=== PATIENT | male | born 1935 | race Caucasian/White ===

== ENCOUNTER 2016-08-17 11:52 | Emergency (ER) | payer MEDICARE ==
[~2016-08-17] VITALS: Ht 188 cm; Wt 113.4 kg
[~2016-08-17 11:52] MED LIST: ASP325T; ASPI-983 PO; ATOR80TA76 PO; METO-351 PO; OMEG500C3 PO; PRILOSEC; TICA90TA PO
--- NOTE | 2016-08-17 12:25 | ED Lower Extremity ---
General Chief Complaint: Lower Extremity Stated Complaint: PT THINKS POSS BLOOD CLOTS IN LT LEG Source: patient Exam Limitations: no limitations History of Present Illness Time seen by provider: 12:22 Initial Comments The patient is a 81-year-old white male who presents with complaints of pain and swelling in the left lower leg. He states that this has come on over the past several days and he fears that he has a blood clot. He stated that he has previously had one in the right leg. He also has had 3 coronary stents placed. At this time he takes only one baby aspirin daily. 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 Onset: last week Pain/Injury Location: left leg Method of Injury: unknown Allergies and Home Medications Allergies Coded Allergies: No Known Drug Allergies (Verified , 09/27/06) Home Medications Aspirin 81 Mg Tablet.dr, 81 MG PO DAILY, #100 Ref 4 Prescribed by: AUDREY ARENAS on 01/06/15 0835 Atorvastatin Calcium 80 Mg Tablet, 80 MG PO HS, #30 Ref 6 Prescribed by: AUDREY ARENAS on 01/06/15 0835 Metoprolol Succinate 25 Mg Tab.er.24h, 25 MG PO DAILY, #30 Ref 4 Prescribed by: AUDREY ARENAS on 01/06/15 0835 [place]-3 Fatty Acids 500 Mg Capsule, 1,000 MG PO BID, #100 Ref 4 Prescribed by: AUDREY ARENAS on 01/06/15 0835 Ticagrelor 90 Mg Tablet, 90 MG PO BID, #60 Ref 6 Prescribed by: AUDREY ARENAS on 01/06/15 0835 [Prilosec] , (Reported) Constitutional: see HPI EENTM: no symptoms reported Respiratory: dyspnea on exertion Cardiovascular: see HPI, Hx of Intervention, vascular heart diseas Gastrointestinal: no symptoms reported Genitourinary: no symptoms reported Musculoskeletal: no symptoms reported Skin: no symptoms reported Psychiatric/Neurological: No Symptoms Reported Past Lbvheiz-Xygewo-Snistb Hx Patient Social History Alcohol Use: Denies Use Recreational Drug Use: No Smoking Status: Never a Smoker Recent Foreign Travel: No Contact w/Someone Who Travel: No Recent Hopitalizations: No (AT THIS POINT THE PT REFUSED TO ANSWER ANY MORE QUESTIONS) Surgeries HX Surgeries: No Surgeries: Coronary Stent Respiratory Hx Respiratory Disorders: No Cardiovascular Hx Cardiac Disorders: No Cardiac Disorders: Heart Attack Neurological Hx Neurological Disorders: No Reproductive System Hx Reproductive Disorders: No Genitourinary Hx Genitourinary Disorders: No Gastrointestinal Hx Gastrointestinal Disorders: No Musculoskeletal Hx Musculoskeletal Disorders: No Endocrine Hx Endocrine Disorders: No HEENT HX ENT Disorders: No Psychosocial Hx Psychiatric Problems: No Integumentary HX Skin/Integumentary Disorder: No Blood Transfusions Hx Blood Disorders: No Physical Exam Vital Signs Vital Sign - Last 12Hours 08/17/16 12:05 Temp 97.4 Pulse 105 Resp 20 B/P (MAP) 153/103 Pulse Ox 94 Capillary Refill : General Appearance: WD/WN, no apparent distress HEENT: normal ENT inspection Neck: full range of motion Cardiovascular: normal peripheral pulses, regular rate, rhythm, no edema, no gallop, no JVD, no murmur Respiratory: chest non-tender, lungs clear, normal breath sounds, no respiratory distress, no accessory muscle use Gastrointestinal: normal bowel sounds, non tender, soft, no organomegaly, no pulsatile mass Back: normal inspection 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 There is a medial red streak over the distal and middle thirds of the leg. There is a palpable somewhat tender cord consistent with clot in the superficial vein. Progress/Results/Core Measures Results/Orders My Orders Orders - ZITA GROSS MD Venous Lower Ext Lt (08/17/16 12:40) Vital Signs/I&O Vital Sign - Last 12Hours 08/17/16 12:05 Temp 97.4 Pulse 105 Resp 20 B/P (MAP) 153/103 Pulse Ox 94 Departure Communication Progress Notes 1340 radiology confirms the impression of superficial venous thrombosis. 1354 I discussed with the patient and his family options and treatment which include NSAIDs and thermal measures, subcutaneous Lovenox, or Eliquis. In addition he needs a local physician to follow up and this was emphasized. He has elected to proceed with Eliquis. Impression Impression: Primary Impression: superficial venous thrombosis Disposition: HOME, SELF-CARE Condition: Stable/Unchanged Departure-Patient Inst. Decision time for Depature: 13:53 Referrals: NO,LOCAL PHYSICIAN (PCP) Primary Care Physician Patient Instructions: Deep Vein Thrombosis (Blood Clots in the Legs) (DC) Add. Discharge Instructions: All discharge instructions reviewed with patient and/or family. Voiced understanding. Take ibuprofen 400 mg 3 times daily Elevate the leg as much as possible Use hot or cold compresses several times a day. Your choice will be the one that makes you feel more comfortable. Take the Eliquis twice daily as directed You need to be seen by a local physician in 7-10 days. It is likely that a repeat sonogram will be performed. Scripts Apixaban (Eliquis) 5 Mg Tablet 5 MG PO BID, #60 TAB Prov: ZITA GORSS MD 08/17/16 ZITA GROSS MD Aug 17, 2016 12:25
--- NOTE | 2016-08-17 13:38 | Diagnostic Imaging Report ---
EXAMINATION: Left lower extremity duplex venous ultrasound. TECHNIQUE: DVT protocol. Multiple sonographic images with color Doppler and waveform interrogation were performed of the left lower extremity veins with compression and augmentation maneuvers. INDICATION: Left leg pain. FINDINGS: The left lower extremity veins from the groin to below the knee veins were examined with normal color-flow, compressibility and waveform demonstrated. The great saphenous vein is however thrombosed in the medial aspect of the calf extending around at 16 cm length of this vein. Proximally in the leg, the great saphenous vein is patent. IMPRESSION: 1. Superficial venous thrombosis involving the great saphenous vein in the mid calf. 2. No evidence of DVT in the left lower extremity. Dictated by: Dictated on workstation # [id number]
[2016-08-17] MEDS ORDERED: APIX5TAB PO (13:59)
[2016-08-17 14:10] VITALS: BP 142/88
== END 2016-08-17 14:10 | disposition home or self-care (01) ==
LOC: EDUNIT# 11:52 → ER 11:56
DX: I82.812 Embolism and thrombosis of superficial veins of left lower extremity (principal); I25.2 Old myocardial infarction; Z95.5 Presence of coronary angioplasty implant and graft; Z79.82 Long term (current) use of aspirin
CPT/HCPCS: 99283

== ENCOUNTER → 2017-05-27 | Outpatient (CLI) | payer MEDICARE ==
[~2017-05-27] MED LIST changes: +APIX5TAB PO
--- NOTE | 2017-05-27 17:50 | Diagnostic Imaging Report ---
PROCEDURE: US right lower extremity venous. TECHNIQUE: Multiple real-time grayscale images were obtained over the right lower extremity in various projections. Additional duplex Doppler and color Doppler images were also obtained. INDICATION: Right leg pain and edema. FINDINGS: The right common femoral, femoral, and popliteal veins demonstrate normal response to compression, augmentation, and Valsalva. There is some superficial thrombophlebitis in a varicose vein in the medial calf. There are no abnormal fluid collections or masses. IMPRESSION: No evidence of deep venous thrombosis in the right lower extremity. Superficial thrombophlebitis within a varicose vein along the medial calf. Dictated by: Dictated on workstation # [id number]
== END ==
LOC: RAD 17:01
PROVIDERS: ATTEND Family Medicine
DX: I80.01 Phlebitis and thrombophlebitis of superficial vessels of right lower extremity (principal); I83.891 Varicose veins of right lower extremity with other complications; Z86.718 Personal history of other venous thrombosis and embolism

== ENCOUNTER 2018-04-29 12:05 | Emergency (ER) | payer MEDICARE ==
[~2018-04-29] VITALS: Ht 188 cm; Wt 113.4 kg
--- NOTE | 2018-04-29 12:52 | ED Lower Extremity ---
General Chief Complaint: Lower Extremity Stated Complaint: EDEMA IN LEGS Source: patient Exam Limitations: no limitations History of Present Illness Date Seen by Provider: Apr 29, 2018 Time Seen by Provider: 12:51 Initial Comments To ER by daughter with reports of progressive bilateral lower extremity swelling and draining wounds for the past 3 weeks. He has seen his primary care provider for this but states that nothing has been done for it. Onset: just prior to arrival, other Severity: moderate Pain/Injury Location: bilateral leg Method of Injury: fell Modifying Factors: Worse With Movement Allergies and Home Medications Allergies Coded Allergies: No Known Drug Allergies (Verified , 09/27/06) Home Medications Amoxicillin/Potassium Clav 1 Each Tablet, 1 EACH PO BID Prescribed by: SORAYA MURRAY on 04/29/18 1326 Apixaban 5 Mg Tablet, 5 MG PO BID Prescribed by: ZITA GROSS on 08/17/16 1359 Aspirin 81 Mg Tablet.dr, 81 MG PO DAILY Prescribed by: AUDREY ARENAS on 01/06/15 0835 Atorvastatin Calcium 80 Mg Tablet, 80 MG PO HS Prescribed by: AUDREY ARENAS on 01/06/15 0835 Metoprolol Succinate 25 Mg Tab.er.24h, 25 MG PO DAILY Prescribed by: AUDREY ARENAS on 01/06/15 0835 [place]-3 Fatty Acids 500 Mg Capsule, 1,000 MG PO BID Prescribed by: AUDREY ARENAS on 01/06/15 0835 Ticagrelor 90 Mg Tablet, 90 MG PO BID Prescribed by: AUDREY ARENAS on 01/06/15 0835 Patient Home Medication List Home Medication List Reviewed: Yes Review of Systems Constitutional: see HPI EENTM: see HPI Respiratory: no symptoms reported; No cough; dyspnea on exertion (chronic and unchanged) Cardiovascular: no symptoms reported; No chest pain Genitourinary: no symptoms reported Musculoskeletal: no symptoms reported Skin: no symptoms reported Psychiatric/Neurological: No Symptoms Reported Past Wsycyup-Qddgwx-Adymmf Hx Patient Social History Recent Foreign Travel: No Contact w/Someone Who Travel: No Recent Hopitalizations: No (AT THIS POINT THE PT REFUSED TO ANSWER ANY MORE QUESTIONS) Past Medical History Surgeries: Yes Coronary Stent Respiratory: No Cardiac: Yes Heart Attack Neurological: No Reproductive Disorders: No Gastrointestinal: No Musculoskeletal: No Endocrine: No Psychosocial: No Integumentary: No Blood Disorders: No Physical Exam Vital Signs Vital Signs - First Documented 04/29/18 12:15 Temp 98.0 Pulse 82 Resp 22 B/P (MAP) 134/80 (98) Pulse Ox 95 O2 Delivery Room Air Capillary Refill : Height, Weight, BMI Height: 6'2.00" Weight: 250lbs. 0.0oz. 113.528001dv; BMI Method:Stated General Appearance: WD/WN, no apparent distress HEENT: PERRL/EOMI, normal ENT inspection Neck: non-tender, full range of motion Respiratory: no respiratory distress, no accessory muscle use Hips: bilateral hip non-tender, bilateral hip normal inspection, bilateral hip normal range of motion Legs: bilateral leg other (3+ pitting edema bilateral lower extremity, multiple draining wounds, draining serous fluid on each side.) Knees: bilateral knee non-tender, bilateral knee normal inspection, bilateral knee normal range of motion Ankles: bilateral ankle non-tender, bilateral ankle normal range of motion, bilateral ankle swelling Feet: bilateral foot non-tender, bilateral foot normal range of motion, bilateral foot swelling Neurologic/Psychiatric: alert, normal mood/affect, oriented x 3 Skin: normal color, warm/dry Progress/Results/Core Measures Results/Orders My Orders Orders - SORAYA MURRAY APRN Cbc With Automated Diff (04/29/18 12:28) Comprehensive Metabolic Panel (04/29/18 12:28) BNP (04/29/18 12:28) Chest Pa/Lat (2 View) (04/29/18 12:38) Wound Culture (04/29/18 12:38) Vital Signs/I&O 04/29/18 12:15 Temp 98.0 Pulse 82 Resp 22 B/P (MAP) 134/80 (98) Pulse Ox 95 O2 Delivery Room Air Diagnostic Imaging Diagonstic Imaging: Xray Plain Films/CT/US/NM/MRI: chest Comments NAME: [facility] REC#: [id number] PT STATUS: REG ER : 1935 PHYSICIAN: SORAYA MURRAY APRN ADMIT DATE: 04/29/18/ER Draft Date of Exam:04/29/18 CHEST PA/LAT (2 VIEW) INDICATION: Edema. COMPARISON: 01/05/2015. FINDINGS: There is cardiomegaly. There is venous congestion. There are patchy bibasilar infiltrates. There is no pleural effusion or pneumothorax. The mediastinum is unremarkable. IMPRESSION: 1. Patchy bibasilar infiltrates. 2. Cardiomegaly. 3. Central pulmonary venous congestion. Dictated on workstation # [id number] Dict: 04/29/18 1308 Trans: 04/29/[address] [facility] [id number] Interpreted by: KATHI SANCHEZ MD Electronically signed by: Departure Impression Primary Impression: Pedal edema Additional Impression: Open leg wound Qualified Codes: S81.801A - Unspecified open wound, right lower leg, initial encounter Disposition: HOME, SELF-CARE Condition: Stable Departure-Patient Inst. Decision time for Depature: 13:24 Referrals: MONIQUE GARCIA MD, RACHEL L MD (PCP/Family) Primary Care Physician Patient Instructions: Dependent Edema (DC) Add. Discharge Instructions: 1. Elevate your legs as much as possible 2. Take antibiotics as directed 3. Follow-up with your doctor later next week for recheck. You have an appointment with Dr. Morris from wound care on Wednesday05/03/18 at 12:45 PM. Scripts Amoxicillin/Potassium Clav (Augmentin 875-125 Tablet) 1 Each Tablet 1 EACH PO BID, #14 TAB Prov: SORAYA MURRAY APRN 04/29/18 SORAYA MURRAY APRN Apr 29, 2018 12:52
--- NOTE | 2018-04-29 13:12 | Diagnostic Imaging Report ---
INDICATION: Edema. COMPARISON: 01/05/2015. FINDINGS: There is cardiomegaly. There is venous congestion. There are patchy bibasilar infiltrates. There is no pleural effusion or pneumothorax. The mediastinum is unremarkable. IMPRESSION: 1. Patchy bibasilar infiltrates. 2. Cardiomegaly. 3. Central pulmonary venous congestion. Dictated by: Dictated on workstation # [id number]
[2018-04-29] MEDS ORDERED: AMOX-358 PO (13:26)
[2018-04-29 13:48] LABS: BASOPHILS % (AUTO) 0 % (0-10); EOSINOPHILS # (AUTO) 0.1 10^3/uL (0.0-0.3); EOSINOPHILS % (AUTO) 2 % (0-10); HEMATOCRIT 31 % (40-54); HEMOGLOBIN 9.3 G/DL (13.3-17.7); LYMPHOCYTES # (AUTO) 1.3 X 10^3 (1.0-4.0); LYMPHOCYTES % (AUTO) 15 % (12-44); MEAN CORPUSCULAR HEMOGLOBIN 31 PG (25-34); MEAN CORPUSCULAR HGB CONC 30 G/DL (32-36); MEAN CORPUSCULAR VOLUME 103 FL (80-99); MEAN PLATELET VOLUME 8.4 FL (7.4-10.4); MONOCYTES # (AUTO) 0.7 X 10^3 (0.0-1.0); MONOCYTES % (AUTO) 8 % (0-12); NEUTROPHILS # (AUTO) 6.6 X 10^3 (1.8-7.8); NEUTROPHILS % (AUTO) 75 % (42-75); PLATELET COUNT 236 10^3/uL (130-400); RED CELL DISTRIBUTION WIDTH 16.4 % (10.0-14.5); WHITE BLOOD COUNT 8.9 10^3/uL (4.3-11.0)
[2018-04-29 14:15] LABS: ALBUMIN 3.8 GM/DL (3.2-4.5); BILIRUBIN,TOTAL 0.6 MG/DL (0.1-1.0); CREATININE SERUM 1.68 MG/DL (0.60-1.30); POTASSIUM 4.4 MMOL/L (3.6-5.0); TOTAL PROTEIN 6.7 GM/DL (6.4-8.2)
[2018-04-29 14:22] VITALS: BP 134/80
--- OUTSIDE RECORDS SUMMARY | 2018-05-01 09:18 | XMS REPORT | Continuity of Care Document ---
Author Author [facility] Organization [facility] Address Unknown Phone Unavailable Allergies Active Description Code Type Severity Reaction Onset Reported/Identified Relationship to Patient Clinical Status Yes NO KNOWN DRUG ALLERGIES UNKNOWN NO KNOWN DRUG ALLERG Yes No Known Drug Allergies [id number] Drug Allergy Unknown N/A 09/27/2006 Medications There is no data. 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 01/06/2015 AUDREY ARENAS MD Ot I25.10 ATHSCL HEART DISEASE OF [place] CORONARY 01/06/2015 AUDREY ARENAS MD Ot I25.5 ISCHEMIC CARDIOMYOPATHY 01/06/2015 AUDREY ARENAS MD Ot I50.21 ACUTE SYSTOLIC (CONGESTIVE) HEART FAILUR 01/06/2015 AUDREY ARENAS MD Ot I95.9 HYPOTENSION, UNSPECIFIED 02/11/2015 ROLANDO NAVARRO Ot E78.2 02/11/2015 ROLANDO NAVARRO Ot I10 02/11/2015 ROLANDO NAVARRO Ot I25.10 02/11/2015 ROLANDO NAVARRO Ot I50.1 02/28/2015 ROLANDO NAVARRO Ot E78.2 02/28/2015 ROLANDO NAVARRO Ot I10 02/28/2015 ROLANDO NAVARRO Ot I25.10 02/28/2015 ROLANDO NAVARRO Ot I50.1 03/20/2015 ROLANDO NAVARRO Ot E78.2 03/20/2015 ROLANDO NAVARRO Ot I10 03/20/2015 ROLANDO NAVARRO Ot I25.10 03/20/2015 ROLANDO NAVARRO Ot I50.1 08/17/2016 ZITA GROSS MD, Ot I25.2 OLD MYOCARDIAL INFARCTION 08/17/2016 ZITA GROSS MD Ot I82.812 EMBOLISM AND THROMBOSIS OF [place]PERFIC VEIN 08/17/2016 ZITA GROSS MD Ot M79.605 PAIN IN LEFT LEG 08/17/2016 ZITA GROSS MD Ot Z79.82 SENIOR CARE (CURRENT) USE OF ASPIRIN 08/17/2016 ZITA GROSS MD Ot Z95.5 PRESENCE OF CORONARY ANGIOPLASTY IMPLANT 08/19/2016 ZITA GROSS MD Ot I25.2 OLD MYOCARDIAL INFARCTION 08/19/2016 ZITA GROSS MD Ot I82.812 EMBOLISM AND THROMBOSIS OF [place] 08/19/2016 ZITA GROSS MD Ot M79.605 PAIN IN LEFT LEG 08/19/2016 ZITA GROSS MD Ot Z79.82 SENIOR CARE (CURRENT) USE OF ASPIRIN 08/19/2016 ZITA GROSS MD Ot Z95.5 PRESENCE OF CORONARY ANGIOPLASTY IMPLANT 11/10/2016 Abhijeet Hardin 272.4 OTHER AND UNSPECIFIED HYPERLIPIDEMIA 11/10/2016 Abhijeet Hardin 401.9 UNSPECIFIED ESSENTIAL HYPERTENSION 11/10/2016 Abhijeet Hardin 453.42 ACUTE VENOUS EMBOLISM AND THROMBOSIS OF DEEP VESSELS OF DISTAL LOWER EXTREMITY 11/10/2016 Abhijeet Hardin E78.5 HYPERLIPIDEMIA, UNSPECIFIED 11/10/2016 Abhijeet Hardin I10 ESSENTIAL (PRIMARY) HYPERTENSION 11/10/2016 Abhijeet Hardin I82.4Z1 AC EMBLSM AND THOMBOS UNSP DEEP VEINS OF R DIST LOW EXTRM 11/10/2016 Abhijeet Hardin V12.51 PERSONAL HISTORY OF VENOUS THROMBOSIS AND EMBOLISM 11/10/2016 Abhijeet Hardin Z86.718 PERSONAL HISTORY OF OTHER VENOUS THROMBOSIS AND EMBOLISM 11/27/2016 FADI FROST 434.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, 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 11/27/2016 FROST, FADI W 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 11/27/2016 MARGOT FADI W 434.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, 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 11/27/2016 MARGOT FADI W 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 11/27/2016 FROSTCINDYFADI W 434.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, 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 11/27/2016 MARGOTCINDYFADI W 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 11/27/2016 FROSTCINDYFADI W 434.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, 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 11/27/2016 FADI FROST 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 05/27/2017 MARGOT ARIAS, FADI L Ot R60.0 LOCALIZED EDEMA 05/27/2017 MARGOT ARIAS, FADI L Ot R60.0 LOCALIZED EDEMA 05/28/2017 MARGOT ARIAS, FADI L Ot 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 05/28/2017 MARGOT ARIAS, FADI L Ot 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 05/28/2017 MARGOT ARIAS, FADI L Ot Z86.718 PERSONAL HISTORY OF OTHER VENOUS THROMBO 05/28/2017 FADI FROST W 401.0 MALIGNANT ESSENTIAL HYPERTENSION 05/28/2017 FADI FROST W 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 05/28/2017 FADI FROST A 782.3 EDEMA 05/28/2017 FADI FROST W I10 ESSENTIAL (PRIMARY) HYPERTENSION 05/28/2017 FADI FROST W I25.10 ATHEROSCLEROTIC HEART DISEASE OF [place] CORONARY ARTERY WITHOUT ANGINA PECTORIS 05/28/2017 FADI FROST A R60.0 LOCALIZED EDEMA 05/28/2017 FADI FROST W 401.0 MALIGNANT ESSENTIAL HYPERTENSION 05/28/2017 FADI FROST W 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 06/01/2017 FADI FROST MD Ot Z86.718 PERSONAL HISTORY OF OTHER VENOUS THROMBO 06/02/2017 ROLANDO NAVARRO Ot E78.2 MIXED HYPERLIPIDEMIA 06/02/2017 ROLANDO NAVARRO Ot I10 ESSENTIAL (PRIMARY) HYPERTENSION 06/02/2017 ROLANDO NAVARRO Ot I25.10 ATHSCL HEART DISEASE OF [place] CORONARY 06/02/2017 ROLANDO NAVARRO Ot I50.1 LEFT VENTRICULAR FAILURE 06/02/2017 FADI FROST MD Ot 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 06/02/2017 FADI FROST MD Ot 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 06/02/2017 FADI FROST MD Ot Z86.718 PERSONAL HISTORY OF OTHER VENOUS THROMBO 06/03/2017 FADI FROST 401.0 MALIGNANT ESSENTIAL HYPERTENSION 06/03/2017 FADI FROST 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 06/03/2017 FADI FROST 782.3 EDEMA 06/03/2017 FADI FROST I10 ESSENTIAL (PRIMARY) HYPERTENSION 06/03/2017 FADI FROST I25.10 ATHEROSCLEROTIC HEART DISEASE OF [place] CORONARY ARTERY WITHOUT ANGINA PECTORIS 06/03/2017 FADI FROST R60.0 LOCALIZED EDEMA 06/03/2017 FADI FROST V12.51 PERSONAL HISTORY OF VENOUS THROMBOSIS AND EMBOLISM 06/03/2017 FADI FROST Z86.718 PERSONAL HISTORY OF OTHER VENOUS THROMBOSIS AND EMBOLISM 06/03/2017 FADI FROST 272.4 06/03/2017 FADI FROST 401.0 MALIGNANT ESSENTIAL HYPERTENSION 06/03/2017 FROSTFADI ATKINSON W 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 06/03/2017 FROST, FADI W 428.0 06/03/2017 FROST, FADI A 782.3 EDEMA 06/03/2017 FROSTCINDYFADI W E78.5 HYPERLIPIDEMIA, UNSPECIFIED 06/03/2017 FROST, FADI W I10 ESSENTIAL (PRIMARY) HYPERTENSION 06/03/2017 FROST, FADI W I25.10 ATHEROSCLEROTIC HEART DISEASE OF [place] CORONARY ARTERY WITHOUT ANGINA PECTORIS 06/03/2017 FROST, FADI W I50.9 HEART FAILURE, UNSPECIFIED 06/03/2017 FROST, FADI A R60.0 LOCALIZED EDEMA 06/03/2017 FROST, FADI W V12.51 PERSONAL HISTORY OF VENOUS THROMBOSIS AND EMBOLISM 06/03/2017 FADI FROST W Z86.718 PERSONAL HISTORY OF OTHER VENOUS THROMBOSIS AND EMBOLISM 06/03/2017 FADI FROST W 272.4 06/03/2017 FADI FROST W 401.0 MALIGNANT ESSENTIAL HYPERTENSION 06/03/2017 FADI FROST W 414.01 06/03/2017 FROST, FADI W 428.0 06/03/2017 FROST FADI A 782.3 EDEMA 06/03/2017 FROST, FADI W E78.5 HYPERLIPIDEMIA, UNSPECIFIED 06/03/2017 FROST, FADI W I10 ESSENTIAL (PRIMARY) HYPERTENSION 06/03/2017 FROST, FADI W I25.10 ATHEROSCLEROTIC HEART DISEASE OF [place] CORONARY ARTERY WITHOUT ANGINA PECTORIS 06/03/2017 FADI FROST W I50.9 HEART FAILURE, UNSPECIFIED 06/03/2017 MARGOT FADI A R60.0 LOCALIZED EDEMA 06/03/2017 FROSTFADI ATKINSON W V12.51 PERSONAL HISTORY OF VENOUS THROMBOSIS AND EMBOLISM 06/03/2017 FADI FROST W Z86.718 PERSONAL HISTORY OF OTHER VENOUS THROMBOSIS AND EMBOLISM 11/30/2017 FADI FROST W 272.4 OTHER AND UNSPECIFIED HYPERLIPIDEMIA 11/30/2017 MARGOT FADI W 401.0 MALIGNANT ESSENTIAL HYPERTENSION 11/30/2017 CINDY FROSTHEL W 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 11/30/2017 FADI FROST W 782.3 EDEMA 11/30/2017 FADI FROST W 786.09 11/30/2017 FROSTCINDYFADI W E78.5 HYPERLIPIDEMIA, UNSPECIFIED 11/30/2017 FROSTCINDYFADI W I10 ESSENTIAL (PRIMARY) HYPERTENSION 11/30/2017 FROSTFADI ATKINSON W I25.10 ATHEROSCLEROTIC HEART DISEASE OF [place] CORONARY ARTERY WITHOUT ANGINA PECTORIS 11/30/2017 FROSTCINDYFADI W R06.00 DYSPNEA, UNSPECIFIED 11/30/2017 FROST FADI W R60.0 LOCALIZED EDEMA 11/30/2017 FROSTFADI ATKINSON W V70.0 ROUTINE GENERAL MEDICAL EXAMINATION AT A [facility] 11/30/2017 FROSTFADI ATKINSON Z00.01 ENCOUNTER FOR GENERAL ADULT MEDICAL EXAMINATION WITH ABNORMAL FINDINGS 11/30/2017 FROSTFADI ATKINSON W 272.4 OTHER AND UNSPECIFIED HYPERLIPIDEMIA 11/30/2017 FROSTFADI ATKINSON W 401.0 MALIGNANT ESSENTIAL HYPERTENSION 11/30/2017 FADI FROST W 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 11/30/2017 FADI FROST W 782.3 11/30/2017 FADI FROST W 786.05 11/30/2017 FROSTFADI ATKINSON W 786.09 11/30/2017 FROST, FADI W E78.5 HYPERLIPIDEMIA, UNSPECIFIED 11/30/2017 FROST, FADI W I10 ESSENTIAL (PRIMARY) HYPERTENSION 11/30/2017 FROSTFADI ATKINSON W I25.10 ATHEROSCLEROTIC HEART DISEASE OF [place] CORONARY ARTERY WITHOUT ANGINA PECTORIS 11/30/2017 FROST, FADI W R06.00 DYSPNEA, UNSPECIFIED 11/30/2017 FADI FROST W R06.02 SHORTNESS OF BREATH 11/30/2017 FADI FROST W R60.0 LOCALIZED EDEMA 11/30/2017 FROST, FADI W V70.0 11/30/2017 FROSTFADI ATKINSON W Z00.01 ENCOUNTER FOR GENERAL ADULT MEDICAL EXAMINATION WITH ABNORMAL FINDINGS 11/30/2017 FADI FROST W 272.4 OTHER AND UNSPECIFIED HYPERLIPIDEMIA 11/30/2017 FADI FROST W 401.0 MALIGNANT ESSENTIAL HYPERTENSION 11/30/2017 FADI FROST W 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 11/30/2017 FADI FROST W 782.3 11/30/2017 FAID FROST W 786.05 11/30/2017 FADI FROST W 786.09 11/30/2017 FADI FROST W E78.5 HYPERLIPIDEMIA, UNSPECIFIED 11/30/2017 FADI FROST W I10 ESSENTIAL (PRIMARY) HYPERTENSION 11/30/2017 FADI FROST W I25.10 ATHEROSCLEROTIC HEART DISEASE OF [place] CORONARY ARTERY WITHOUT ANGINA PECTORIS 11/30/2017 FADI FROST W R06.00 DYSPNEA, UNSPECIFIED 11/30/2017 FADI FROST W R06.02 SHORTNESS OF BREATH 11/30/2017 FADI FROST W R60.0 LOCALIZED EDEMA 11/30/2017 FADI FROST W V70.0 11/30/2017 FADI FROST W Z00.01 ENCOUNTER FOR GENERAL ADULT MEDICAL EXAMINATION WITH ABNORMAL FINDINGS 12/08/2017 FROST, FADI W 276.1 HYPOSMOLALITY AND/OR HYPONATREMIA 12/08/2017 FROST FADI W E87.1 HYPO-OSMOLALITY AND HYPONATREMIA 12/08/2017 FROST FADI W 276.1 HYPOSMOLALITY AND/OR HYPONATREMIA 12/08/2017 MARGOT FADI W E87.1 HYPO-OSMOLALITY AND HYPONATREMIA 12/08/2017 FADI FROST W 276.1 HYPOSMOLALITY AND/OR HYPONATREMIA 12/08/2017 FROST FADI W 414.00 CORONARY ATHEROSCLEROSIS OF UNSPECIFIED TYPE OF VESSEL, [place] OR [place] 12/08/2017 FADI FROST W 782.3 EDEMA 12/08/2017 CINDY FROSTHEL W 786.09 OTHER DYSPNEA AND RESPIRATORY ABNORMALITY 12/08/2017 FROST FADI W E87.1 HYPO-OSMOLALITY AND HYPONATREMIA 12/08/2017 MARGOT FADI W I25.10 ATHEROSCLEROTIC HEART DISEASE OF [place] CORONARY ARTERY WITHOUT ANGINA PECTORIS 12/08/2017 FADI FROST W R06.00 DYSPNEA, UNSPECIFIED 12/08/2017 FADI FROST W R60.0 LOCALIZED EDEMA 12/08/2017 FROST FADI W 276.1 HYPOSMOLALITY AND/OR HYPONATREMIA 12/08/2017 FROST FADI W 414.00 CORONARY ATHEROSCLEROSIS OF UNSPECIFIED TYPE OF VESSEL, [place] OR [place]RAFT 12/08/2017 FROST, FADI W 782.3 EDEMA 12/08/2017 FROST, FADI W 786.09 OTHER DYSPNEA AND RESPIRATORY ABNORMALITY 12/08/2017 CINDY FROSTTIESHA Montez E87.1 HYPO-OSMOLALITY AND HYPONATREMIA 12/08/2017 FROST FADI Montez I25.10 ATHEROSCLEROTIC HEART DISEASE OF [place] CORONARY ARTERY WITHOUT ANGINA PECTORIS 12/08/2017 CINDY FROSTTIESHA Montez R06.00 DYSPNEA, UNSPECIFIED 12/08/2017 CINDY FROSTTIESHA Montez R60.0 LOCALIZED EDEMA Procedures Code Description Performed By Performed On [id number] DILATION OF 1 COR ART WITH DRUG-ELUT INT 01/05/2015 [id number] MEASURE OF CARDIAC SAMPL PRESSURE, L H 01/05/2015 [id number] FLUOROSCOPY OF MULT COR ART USING L OSM 01/05/2015 [id number] FLUOROSCOPY OF LEFT HEART USING LOW OSMO 01/05/2015 Results Test Result Range Protime - 08/25/16 14:15 INR 1.4 1.0-4.0 Protime 16.9 Sec 9.9-12.8 Protime - 08/26/16 13:33 INR 1.4 1.0-4.0 Protime 17.2 Sec 9.9-12.8 Protime - 08/27/16 08:26 INR 1.5 1.0-4.0 Protime 17.7 Sec 9.9-12.8 Protime - 08/28/16 08:28 INR 2.2 1.0-4.0 Protime 26.7 Sec 9.9-12.8 Protime - 08/31/16 08:48 INR 3.1 1.0-4.0 Protime 38.3 Sec 9.9-12.8 Protime - 09/02/16 08:48 INR 3.3 1.0-4.0 Protime 40.5 Sec 9.9-12.8 Protime - 09/09/16 08:32 INR 3.9 1.0-4.0 Protime 48.3 Sec 9.9-12.8 Protime - 09/16/16 08:43 INR 2.5 1.0-4.0 Protime 30.0 Sec 9.9-12.8 Protime - 09/28/16 09:04 INR 2.1 1.0-4.0 Protime 26.1 Sec 9.9-12.8 Comprehensive Metabolic Panel - 11/10/16 16:15 Albumin 4.0 g/dL 3.6-5.1 ALP 44 U/L 35-130 ALT 21 U/L 6-45 Anion Gap 15 6-14 AST 22 U/L 2-40 BUN 12 mg/dL 5-25 Calcium 9.4 mg/dL 8.3-10.4 Chloride 102 mmol/L 95-114 CO2 27 mEq/L 22-33 Creat 1.17 mg/dL 0.50-1.50 eGFR 60 mL/min/1.73m2 >59 Globulin 3.5 g/dL 2.3-3.5 Glucose 93 mg/dL 70-110 Osmo 287 280-295 Potassium 4.5 mmol/L 3.5-5.3 Sodium 139 mmol/L 134-148 TBil 0.6 mg/dL 0.2-1.2 TP 7.5 g/dL 6.0-8.3 Other Culture - 11/26/16 17:00 PRELIM CULTURE RESULTS Abundant Gram Negative - CARLOS A / ID to [id number] Gram Positive Mixed Misa MEDIA PLATED Setup at 14:38 on 11/27/2016 Sensi - 11/26/16 17:00 Ampicillin/Sulbactam <=8/4 Ampicillin <=2 Amoxicillin/K Clavulanate <=4/2 Ceftriaxone <=8 Clindamycin <=0.5 Cefoxitin Screen N/R Ciprofloxacin <=1 Daptomycin <=0.5 Erythromycin <=0.5 Nitrofurantoin <=32 Gentamicin <=4 Gentamicin Synergy Screen N/R Inducible Clindamycin N/R Levofloxacin <=1 Linezolid <=1 Moxifloxacin <=0.5 Oxacillin <=0.25 Penicillin 2 Rifampin <=1 Streptomycin Synergy N/R Synercid <=0.5 Trimethoprim/ Sulfamethoxazole <=0.5/9.5 Tetracycline <=4 Vancomycin 2 FINAL CULTURE RESULTS Staphylococcus epidermidis (Isolate 2) Sensi - 11/26/16 17:00 FINAL CULTURE RESULTS Providencia rettgeri (Isolate 1) Ampicillin/Sulbactam <=8/4 Ampicillin <=8 Amoxicillin/K Clavulanate 16/8 Ceftriaxone <=8 Ciprofloxacin <=1 Nitrofurantoin >64 Gentamicin <=4 Levofloxacin <=2 Trimethoprim/ Sulfamethoxazole <=2/38 Tetracycline >8 Amikacin <=16 Aztreonam <=8 Ceftazidime <=1 Ceftazidime/K Clavulanate <=0.25 Cephalothin >16 Cefotaxime <=2 Cefotaxime/K Clavulanate <=0.5 Cefoxitin <=8 Cefazolin >16 Cefepime <=8 Cefuroxime <=4 Ertapenem <=1 Imipenem <=4 Meropenem <=4 Piperacillin/Tazobactam <=16 Piperacillin <=16 Tigecycline <=2 Tobramycin <=4 Protein S-Antigen - 11/27/16 10:03 PROTEIN S, FREE 78 % 57-157 PROTEIN S, TOTAL 84 % 60-150 Antiphospholipid Antibody - 11/27/16 10:03 CARDIOLIPIN IGA NEGATIVE CARDIOLIPIN IGG NEGATIVE CARDIOLIPIN IGM NEGATIVE COMMENTS SEE BELOW. PHOSPHATIDYL GLYCEROL IGA NEGATIVE PHOSPHATIDYL GLYCEROL IGG NEGATIVE PHOSPHATIDYL GLYCEROL IGM NEGATIVE PHOSPHATIDYL INOSITOL IGA NEGATIVE PHOSPHATIDYL INOSITOL IGG NEGATIVE PHOSPHATIDYL INOSITOL IGM NEGATIVE PHOSPHATIDYL SERINE IGA NEGATIVE PHOSPHATIDYL SERINE IGG NEGATIVE PHOSPHATIDYL SERINE IGM NEGATIVE SPECIMEN STATUS SPECIMEN HAS BEEN RECEIVED AND THE RESULTS WILL BE FORWARDED TO YOU.brTHROUGH THE MAIL. INTERPRETATION NEGATIVE Protein S-Antigen - 11/27/16 10:03 Protein S, Free 78 % 57-157 Protein S, Total 84 % 60-150 Antithrombin Activity - 11/27/16 10:03 Antithrombin Activity 79 % 75-135 Protein C Antigen - 11/27/16 10:03 Protein C Antigen 56 % 60-150 Comprehensive Metabolic Panel - 05/28/17 11:47 Albumin 4.0 g/dL 3.6-5.1 ALP 54 U/L 35-130 ALT 17 U/L 6-45 Anion Gap 15 6-14 AST 18 U/L 2-40 BUN 11 mg/dL 5-25 Calcium 9.2 mg/dL 8.3-10.4 Chloride 100 mmol/L 95-114 CO2 27 mEq/L 22-33 Creat 1.25 mg/dL 0.50-1.50 eGFR 56 mL/min/1.73m2 >59 Globulin 2.9 g/dL 2.3-3.5 Glucose 106 mg/dL 70-110 Osmo 285 280-295 Potassium 4.2 mmol/L 3.5-5.3 Sodium 138 mmol/L 134-148 TBil 0.6 mg/dL 0.2-1.2 TP 6.9 g/dL 6.0-8.3 Protein C Antigen - 06/03/17 10:22 PROTEIN C ANTIGEN 63 % 60-150 Protein C Antigen - 06/03/17 10:22 Protein C Antigen 63 % 60-150 Factor V Leiden Mutation - 06/03/17 10:22 Factor V Leiden Comment CBC with Auto Diff - 08/26/17 14:21 Baso% 0.60 % 0.00-2.50 Eos 0.2 K/uL 0.0-0.7 Eos% 2.0 % 0.0-7.0 Hct 35.7 % 42.0-52.0 Hgb 12.2 g/dL 14.0-17.0 Lym 1.97 K/uL 0.60-3.40 Lym% 18.9 % 10.0-50.0 MCH 35.5 pg 27.0-31.2 MCHC 34.2 g/dL 32.0-36.0 MCV 103.8 fL 80.0-97.0 Love% 7.7 % 0.0-12.0 MPV 9.2 fL 7.4-10.0 Yaya% 70.8 % 37.0-80.0 Plt 217 K/uL 150-400 RBC 3.44 M/uL 4.20-5.40 RDW 13.2 % 11.6-14.8 WBC 10.44 K/uL 5.00-10.00 Yaya 7.40 K/uL 2.00-6.90 Love 0.8 K/uL 0.0-0.9 Baso 0.1 K/uL 0.0-0.2 BNP - 11/30/17 16:00 BNP 78.90 pg/ml 0.00-100.00 Urine Creatinine, Random - 12/08/17 10:20 Urine Creatinine 17.2 mg/dl 0.0-50.0 Protein Electro, Random Urine - 12/08/17 10:20 PROTEIN,TOTAL,URINE <4.0 MG/DL NOT ESTAB. ALBUMIN, U 12.8 % [id number], U 4.2 % [id number], U 2.7 % BETA GLOBULIN, U 19.4 % GAMMA GLOBULIN, U 60.9 % PLEASE NOTE: PROTEIN ELECTROPHORESIS SCAN WILL FOLLOW VIA COMPUTER, MAIL, OR.brCOURIER DELIVERY. M-SPIKE, % NOT OBSERVED % NOT OBSERVED Protein Electro, Random Urine - 12/08/17 10:20 Protein,Total,Urine <4.0 mg/dL Not Estab. Please note: Comment Albumin, U 12.8 % Gxuqf-[id number], U 4.2 % Yrkbq-6-Rgvvabpw, U 2.7 % Beta Globulin, U 19.4 % Gamma Globulin, U 60.9 % M-Gonsalo, % Not Observed % Not Observed PDF . Complete blood count (CBC) with automated white blood cell (WBC) differential - 04/29/18 13:36 Blood leukocytes automated count (number/volume) 8.9 10*3/uL 4.3-11.0 Blood erythrocytes automated count (number/volume) 2.99 10*6/uL 4.35-5.85 Venous blood hemoglobin measurement (mass/volume) 9.3 g/dL 13.3-17.7 Blood hematocrit (volume fraction) 31 % 40-54 Automated erythrocyte mean corpuscular volume 103 [foz_us] 80-99 Automated erythrocyte mean corpuscular hemoglobin (mass per erythrocyte) 31 pg 25-34 Automated erythrocyte mean corpuscular hemoglobin concentration measurement ( mass/volume) 30 g/dL 32-36 Automated erythrocyte distribution width ratio 16.4 % 10.0-14.5 Automated blood platelet count (count/volume) 236 10*3/uL 130-400 Automated blood platelet mean volume measurement 8.4 [foz_us] 7.4-10.4 Automated blood neutrophils/100 leukocytes 75 % 42-75 Automated blood lymphocytes/100 leukocytes 15 % 12-44 Blood monocytes/100 leukocytes 8 % 0-12 Automated blood eosinophils/100 leukocytes 2 % 0-10 Automated blood basophils/100 leukocytes 0 % 0-10 Blood neutrophils automated count (number/volume) 6.6 10*3 1.8-7.8 Blood lymphocytes automated count (number/volume) 1.3 10*3 1.0-4.0 Blood monocytes automated count (number/volume) 0.7 10*3 0.0-1.0 Automated eosinophil count 0.1 10*3/uL 0.0-0.3 Automated blood basophil count (count/volume) 0.0 10*3/uL 0.0-0.1 Comprehensive metabolic panel - 04/29/18 13:36 Serum or plasma sodium measurement (moles/volume) 141 mmol/L 135-145 Serum or plasma potassium measurement (moles/volume) 4.4 mmol/L 3.6-5.0 Serum or plasma chloride measurement (moles/volume) 102 mmol/L 98-107 Carbon dioxide 31 mmol/L 21-32 Serum or plasma anion gap determination (moles/volume) 8 mmol/L 5-14 Serum or plasma urea nitrogen measurement (mass/volume) 18 mg/dL 7-18 Serum or plasma creatinine measurement (mass/volume) 1.68 mg/dL 0.60-1.30 Serum or plasma urea nitrogen/creatinine mass ratio 11 NRG Serum or plasma creatinine measurement with calculation of estimated glomerular filtration rate 40 NRG Serum or plasma glucose measurement (mass/volume) 96 mg/dL 70-105 Serum or plasma calcium measurement (mass/volume) 9.0 mg/dL 8.5-10.1 Serum or plasma total bilirubin measurement (mass/volume) 0.6 mg/dL 0.1-1.0 Serum or plasma alkaline phosphatase measurement (enzymatic activity/volume) 71 U/L 40-136 Serum or plasma aspartate aminotransferase measurement (enzymatic activity/ volume) 17 U/L 5-34 Serum or plasma alanine aminotransferase measurement (enzymatic activity/volume ) 14 U/L 0-55 Serum or plasma protein measurement (mass/volume) 6.7 g/dL 6.4-8.2 Serum or plasma albumin measurement (mass/volume) 3.8 g/dL 3.2-4.5 CALCIUM CORRECTED 9.2 mg/dL 8.5-10.1 Serum or plasma lithium measurement (moles/volume) - 04/29/18 13:36 BNP level 89.8 pg/mL <100.0 Encounters ACCT No. Visit Date/Time Discharge Status Pt. Type Provider Facility Loc./Unit Complaint [id number] 04/29/2018 12:05:00 04/29/2018 14:30:00 DIS Emergency SORAYA MURRAY APRN [facility] ER EDEMA IN LEGS [id number] 05/27/2017 17:01:00 05/27/2017 23:59:59 CLS Outpatient FADI FROST MD [facility] RAD RT PEDAL EDEMA,PAIN [id number] 08/17/2016 11:56:00 08/17/2016 14:10:00 DIS Emergency GINNY ARIAS, ZITA Vilchis [facility] ER PT THINKS POSS BLOOD CLOTS IN LT LEG [id number] 02/07/2015 15:06:00 02/07/2015 23:59:59 CLS Outpatient ROLANDO NAVARRO [facility] CARD CAD,CHF,HLP, HTN [id number] 01/05/2015 19:56:00 01/06/2015 09:44:00 DIS Inpatient AUDREY ARENAS MD [facility] ICU STEMI [id number] 05/03/2018 13:50:00 PEN Preadmit JOSE ARIAS, MONIQUE Flores [facility] WOUNDCARE [id number] 12/08/2017 12:56:00 12/08/2017 23:59:00 DIS Outpatient FADI FROST [id number] 12/08/2017 12:52:00 12/08/2017 23:59:00 DIS Outpatient AFDI FROST [id number] 11/30/2017 18:07:00 11/30/2017 23:59:00 DIS Outpatient FADI FROST [id number] 08/26/2017 14:14:00 08/26/2017 23:59:00 DIS Outpatient FADI FROST [id number] 06/03/2017 10:02:00 06/03/2017 23:59:00 DIS Outpatient FADI FROST [id number] 05/28/2017 11:37:00 05/28/2017 23:59:00 DIS Outpatient FADI FROST [id number] 11/27/2016 09:44:00 11/27/2016 23:59:00 DIS Outpatient FADI FROST [id number] 11/26/2016 19:58:00 11/26/2016 23:59:00 DIS Outpatient FADI FROST [id number] 11/11/2016 10:58:00 11/11/2016 23:59:00 DIS Outpatient FADI FROST [id number] 11/10/2016 15:37:00 11/10/2016 17:55:00 DIS Outpatient [facility] ER [id number] 09/28/2016 08:55:00 09/28/2016 23:59:00 DIS Outpatient FADI FROST [id number] 09/16/2016 08:36:00 09/16/2016 23:59:00 DIS Outpatient FADI FROST [id number] 09/09/2016 08:27:00 09/09/2016 23:59:00 DIS Outpatient FADI FROST [id number] 09/02/2016 08:42:00 09/02/2016 23:59:00 DIS Outpatient FADI FROST [id number] 08/31/2016 08:39:00 08/31/2016 23:59:00 DIS Outpatient FADI FROST [id number] 08/28/2016 08:25:00 08/28/2016 23:59:00 DIS Outpatient FADI FROST [id number] 08/27/2016 08:22:00 08/27/2016 23:59:00 DIS Outpatient FADI FROST [id number] 08/26/2016 13:17:00 08/26/2016 23:59:00 DIS Outpatient FADI FROST [id number] 08/25/2016 14:15:00 08/25/2016 23:59:00 DIS Outpatient FADI FROST [id number] 06/05/2017 23:07:00 Document Registration [id number] 06/09/2017 03:13:00 Document Registration [id number] 12/10/2017 17:13:00 Document Registration [id number] 12/10/2017 13:18:00 Document Registration [id number] 12/01/2016 02:07:00 Document Registration
== END 2018-04-29 14:30 | disposition home or self-care (01) ==
LOC: ER 12:05
DX: S81.801A Unspecified open wound, right lower leg, initial encounter (principal); R60.0 Localized edema; I25.2 Old myocardial infarction; Z79.01 Long term (current) use of anticoagulants; Z79.82 Long term (current) use of aspirin; Z95.5 Presence of coronary angioplasty implant and graft; W19.XXXA Unspecified fall, initial encounter
CPT/HCPCS: 36415; 71046; 80053; 83880; 85025; 87070; 87077; 87186; 87205

== ENCOUNTER → 2018-05-03 | Outpatient (CLI) | payer MEDICARE ==
[~2018-05-03] MED LIST changes: +AMOX-358 PO
== END ==
LOC: WOUNDCARE 12:56
PROVIDERS: ATTEND Surgery
DX: L97.212 Non-pressure chronic ulcer of right calf with fat layer exposed (principal); L97.221 Non-pressure chronic ulcer of left calf limited to breakdown of skin; I87.333 Chronic venous hypertension (idiopathic) with ulcer and inflammation of bilateral lower extremity; I70.232 Atherosclerosis of native arteries of right leg with ulceration of calf; I89.0 Lymphedema, not elsewhere classified; N18.3 Chronic kidney disease, stage 3 (moderate); T65.222S Toxic effect of tobacco cigarettes, intentional self-harm, sequela; I50.9 Heart failure, unspecified; F17.218 Nicotine dependence, cigarettes, with other nicotine-induced disorders; J44.9 Chronic obstructive pulmonary disease, unspecified
CPT/HCPCS: 99214

== ENCOUNTER → 2018-05-09 | Outpatient (CLI) | payer MEDICARE | LOC: WOUNDCARE 10:56 | PROVIDERS: ATTEND Surgery | DX: I70.232 Atherosclerosis of native arteries of right leg with ulceration of calf (principal); L97.212 Non-pressure chronic ulcer of right calf with fat layer exposed; I87.333 Chronic venous hypertension (idiopathic) with ulcer and inflammation of bilateral lower extremity; L97.221 Non-pressure chronic ulcer of left calf limited to breakdown of skin; I89.0 Lymphedema, not elsewhere classified; N18.3 Chronic kidney disease, stage 3 (moderate); I50.9 Heart failure, unspecified; J44.9 Chronic obstructive pulmonary disease, unspecified; F17.218 Nicotine dependence, cigarettes, with other nicotine-induced disorders; T65.222S Toxic effect of tobacco cigarettes, intentional self-harm, sequela | CPT/HCPCS: 99213 ==

== ENCOUNTER → 2018-05-16 | Outpatient (CLI) | payer MEDICARE | LOC: WOUNDCARE 10:30 | PROVIDERS: ATTEND Surgery | DX: I70.232 Atherosclerosis of native arteries of right leg with ulceration of calf (principal); L97.212 Non-pressure chronic ulcer of right calf with fat layer exposed; I87.333 Chronic venous hypertension (idiopathic) with ulcer and inflammation of bilateral lower extremity; L97.221 Non-pressure chronic ulcer of left calf limited to breakdown of skin; I89.0 Lymphedema, not elsewhere classified; N18.3 Chronic kidney disease, stage 3 (moderate); I50.9 Heart failure, unspecified; J44.9 Chronic obstructive pulmonary disease, unspecified; F17.218 Nicotine dependence, cigarettes, with other nicotine-induced disorders; T65.222S Toxic effect of tobacco cigarettes, intentional self-harm, sequela | CPT/HCPCS: 99213 ==

== ENCOUNTER → 2018-05-23 | Outpatient (CLI) | payer MEDICARE | LOC: WOUNDCARE 10:24 | PROVIDERS: ATTEND Surgery | DX: I70.232 Atherosclerosis of native arteries of right leg with ulceration of calf (principal); L97.212 Non-pressure chronic ulcer of right calf with fat layer exposed; I87.333 Chronic venous hypertension (idiopathic) with ulcer and inflammation of bilateral lower extremity; L97.221 Non-pressure chronic ulcer of left calf limited to breakdown of skin; I89.0 Lymphedema, not elsewhere classified; N18.3 Chronic kidney disease, stage 3 (moderate); I50.9 Heart failure, unspecified; J44.9 Chronic obstructive pulmonary disease, unspecified; F17.218 Nicotine dependence, cigarettes, with other nicotine-induced disorders; T65.222S Toxic effect of tobacco cigarettes, intentional self-harm, sequela | CPT/HCPCS: 99213 ==

== ENCOUNTER → 2018-05-30 | Outpatient (CLI) | payer MEDICARE | LOC: WOUNDCARE 10:25 | PROVIDERS: ATTEND Surgery | DX: I70.232 Atherosclerosis of native arteries of right leg with ulceration of calf (principal); L97.212 Non-pressure chronic ulcer of right calf with fat layer exposed; I87.333 Chronic venous hypertension (idiopathic) with ulcer and inflammation of bilateral lower extremity; L97.221 Non-pressure chronic ulcer of left calf limited to breakdown of skin; I89.0 Lymphedema, not elsewhere classified; N18.3 Chronic kidney disease, stage 3 (moderate); I50.9 Heart failure, unspecified; J44.9 Chronic obstructive pulmonary disease, unspecified; F17.218 Nicotine dependence, cigarettes, with other nicotine-induced disorders; T65.222S Toxic effect of tobacco cigarettes, intentional self-harm, sequela | CPT/HCPCS: 99212 ==